=== PATIENT | male | born 1945 | race Caucasian/White ===

== ENCOUNTER 2019-11-27 00:02 | Inpatient (IN) | payer MEDICARE, BC ==
[2019-11-27] VITALS (17 sets, daily range): BP systolic 95–128; BP diastolic 36–66
[~2019-11-27] VITALS: Ht 177.8 cm; Wt 88.1 kg
--- NOTE | 2019-11-27 00:11 | EKG ---
[facility] [facility] [address] [place] [id number] Test Date: 2019-11-27 Test Time: 00:06:08 Pat Name: JEET POND Department: Room: Gender: M Accounting Support Specialist: : [id number] Requested By: INOCENCIO BAIN Order Number: [id number] Reading MD: Measurements Intervals Grant Rate: 162 P: NJ: QRS: 56 QRSD: 80 T: 43 QT: 270 QTc: 450 Interpretive Statements IRREGULAR RHYTHM, NO P-WAVE FOUND OTHERWISE NORMAL ECG RI6.02 No previous ECG available for comparison
--- NOTE | 2019-11-27 00:11 | PHYS DOC ---
Past History Past Medical History: CAD, Hypertension Adult General Chief Complaint Chief Complaint: CHEST PAIN HPI HPI Patient is a 74-year-old male who presents via EMS for shortness of breath. Initial history obtained via EMS crew who reported 3 days of worsening shortness of breath. This evening while sedentary, patient could not catch his breath and had pulse oximetry reading of 88% on room air. did not know what to do prompting her to call EMS. In route, patient was found to be in atrial fibrillation with RVR approximately 150 bpm. He was placed on a nonrebreather at 15 L supplemental oxygen with improvement in pulse oximetry reading. On arrival, patient remained in atrial fibrillation with RVR. Patient was alert and oriented to person place and time. Patient complaining of inability to catch breath and substernal chest pressure that is nonradiating. He is unsure about his prior medical history and thus an unreliable historian. He has not had fever, no productive cough that has been worse than baseline, no change in sputum purulence Patient's eventually came to ER and further history was elicited. She reports patient typically goes to [facility]. He has history of numerous hospitalizations for his shortness of breath for which she is been diagnosed with COPD. He has history of cardiac arrest but this was due to reaction to iodine, this occurred 10 years ago. Patient has not had an extensive cardiovascular work-up, it is unknown if he has ever had a stress test, no catheterization has been performed. Patient covered by primary care physician in outpatient setting and there has been limited work-up performed Review of Systems Review of Systems Fourteen body systems of review of systems have been reviewed. See HPI for pertinent positives and negative responses, other mondragon all other systems are negative, non-pertinent or non-contributory Current Medications Current Medications Current Medications Medications (Trade) Dose Ordered Sig/Sobeida Start Time Stop Time Status Last Admin Dose Admin Aspirin (Frank Aspirin) 325 mg 1X ONCE 11/27/19 00:15 11/27/19 00:16 UNV Diltiazem HCl (Cardizem Iv Push) 23 mg 1X ONCE 11/27/19 00:15 11/27/19 00:16 UNV Nitroglycerin (Nitrostat) 0.4 mg PRN Q5MIN PRN 11/27/19 00:15 11/28/19 00:14 UNV Physical Exam Physical Exam Constitutional: Well developed, well nourished, moderate distress, non-toxic appearance. HENT: Normocephalic, atraumatic, bilateral external ears normal, oropharynx moist, no oral exudates, nose normal. Eyes: PERRLA, EOMI, conjunctiva normal, no discharge. Neck: Normal range of motion, no tenderness, supple, no stridor. Large mass in left clavicular fossa suspicious for VIRCHOW node Cardiovascular: Heart rate tachycardic and irregular, no murmurs rubs or gallops Lungs & Thorax: Bilateral breath sounds clear to auscultation but in obvious moderate respiratory distress with accessory neck muscle usage Abdomen: Bowel sounds normal, soft, no tenderness, no masses, no pulsatile masses. Nonsurgical abdomen, no peritoneal signs Skin: Warm, dry, no erythema, no rash. Back: No tenderness, no CVA tenderness. Extremities: No tenderness, no cyanosis, no clubbing, ROM intact, 1+ pitting edema to bilateral lower extremities noted Neurologic: Alert and oriented X 3, grossly normal motor & sensory function, no focal deficits noted. Psychologic: Affect normal, judgement normal, anxious mood Current Patient Data Vital Signs Vital Signs Date Time Temp Pulse Resp B/P (MAP) Pulse Ox O2 Delivery O2 Flow Rate FiO2 11/27/19 00:46 136 45 87/54 (65) 11/27/19 00:36 99 11/27/19 00:02 97.7 NonRebreather Mask 10.0 Lab Results Laboratory Tests Test 11/27/19 00:05 White Blood Count 13.1 x10^3/uL (4.0-11.0) Red Blood Count 5.20 x10^6/uL (4.30-5.70) Hemoglobin 14.7 g/dL (13.0-17.5) Hematocrit 44.4 % (39.0-53.0) Mean Corpuscular Volume 85 fL (79-100) Mean Corpuscular Hemoglobin 28 pg (25-35) Mean Corpuscular Hemoglobin Concent 33 g/dL (31-37) Red Cell Distribution Width 15.0 % (11.5-14.5) Platelet Count 287 x10^3/uL (140-400) Neutrophils (%) (Auto) 63 % (31-73) Lymphocytes (%) (Auto) 28 % (24-48) Monocytes (%) (Auto) 7 % (0-9) Eosinophils (%) (Auto) 1 % (0-3) Basophils (%) (Auto) 1 % (0-3) Neutrophils # (Auto) 8.3 x10^3uL (1.8-7.7) Lymphocytes # (Auto) 3.6 x10^3/uL (1.0-4.8) Monocytes # (Auto) 1.0 x10^3/uL (0.0-1.1) Eosinophils # (Auto) 0.1 x10^3/uL (0.0-0.7) Basophils # (Auto) 0.1 x10^3/uL (0.0-0.2) Sodium Level 135 mmol/L (136-145) Potassium Level 4.2 mmol/L (3.5-5.1) Chloride Level 96 mmol/L (98-107) Carbon Dioxide Level 20 mmol/L (21-32) Anion Gap 19 (6-14) Blood Urea Nitrogen 38 mg/dL (8-26) Creatinine 1.7 mg/dL (0.7-1.3) Estimated GFR (Cockcroft-Gault) 39.7 BUN/Creatinine Ratio 22 (6-20) Glucose Level 153 mg/dL (70-99) Calcium Level 10.2 mg/dL (8.5-10.1) Magnesium Level 2.1 mg/dL (1.8-2.4) Total Bilirubin 0.7 mg/dL (0.2-1.0) Aspartate Amino Transf (AST/SGOT) 29 U/L (15-37) Alanine Aminotransferase (ALT/SGPT) 35 U/L (16-63) Alkaline Phosphatase 78 U/L (46-116) Creatine Kinase 61 U/L (39-308) Troponin I Quantitative < 0.017 ng/mL (0-0.055) YJ-Xum-X-Type Natriuretic Peptide 224 pg/mL (0-124) Total Protein 7.1 g/dL (6.4-8.2) Albumin 3.5 g/dL (3.4-5.0) Albumin/Globulin Ratio 1.0 (1.0-1.7) EKG EKG EKG ordered and interpreted by myself 001 1 hours as atrial fibrillation with rapid ventricular rate at 162 bpm, QTC unremarkable, no axis deviation, no acute ischemic findings, no STEMI Radiology/Procedures Radiology/Procedures PROCEDURE: PORTABLE CHEST 1V AP chest. HISTORY: Short of breath AP view was taken of the chest. There is a large mediastinal mass. CT would be recommended. Heart is normal in size. Patient's taken a poor inspiration. There are no confluent infiltrates. IMPRESSION: 1. Large mediastinal mass, CT recommended. Electronically signed by: Grant Steve MD (11/27/2019 12:44 AM) [id number] Course & Med Decision Making Course & Med Decision Making Patient seen on immediate ER arrival Airway patent, patient in moderate respiratory distress on arrival, vitals concerning for tachycardia only. 2 large-bore IVs obtained Limited history obtainable initially, comprehensive physical exam obtained, subsequent diagnostic work-up pursued Weight-based IV Cardizem push in addition to 80 mg IV Lasix for clinical fluid overload administered with improvement in patient's rate P.o. aspirin and Lovenox for anticoagulation administered Cardiology service, Dr. Sanchez, contacted and case reviewed. He agreed need for admission with continued IV Cardizem drip as tolerable with consideration for 0.05 digoxin if patient's hypotension is refractory I discussed need for admission with patient and eventually and granddaughter all of which were amenable. I discussed finding of large mediastinal mass with patient but he was unsure of this ever being discussed in the past. is aware, limited outpatient work-up obtained. I discussed need to stabilize patient cardiovascularly before pursuing CT scan of chest, I feel that mediastinal mass with concerning left virchow node could be contributing to patient's atrial fibrillation with RVR but improvement of cardiovascular status should be obtained prior to further investigation Dr. Lozano was contacted and he to agreed for admission for continued medical management of patient's atrial fibrillation with RVR and further work-up of large mediastinal mass All questions and concerns addressed prior to ER departure to [facility] for continued medical management Dragon Disclaimer Dragon Disclaimer This electronic medical record was generated, in whole or in part, using a voice recognition dictation system. Departure Departure: Impression: Primary Impression: Atrial fibrillation with RVR Additional Impressions: Mediastinal mass COPD (chronic obstructive pulmonary disease) Obesity HTN (hypertension) Disposition: 09 ADMITTED INPT THIS HOSP Admitting Physician: Alberto Lozano Condition: STABLE Problem Qualifiers INOCENCIO BAIN DO Nov 27, 2019 00:11
[2019-11-27] MEDS ORDERED: NITROGLYCERIN SUBLINGUAL 0.4 MG BOTTLE OF 25. SL PRN (00:15)
[2019-11-27] MEDS ORDERED: ASPIRIN 325 MG TABLET PO ONE (00:15)
[2019-11-27] MEDS ORDERED: dilTIAZem 25 MG/5 ML VIAL IVP ONE (00:15)
[2019-11-27 00:19] LABS: BASO # 0.1 x10^3/uL (0.0-0.2); BASO % 1 % (0-3); EOS # 0.1 x10^3/uL (0.0-0.7); EOS % 1 % (0-3); HEMATOCRIT 44.4 % (39.0-53.0); HEMOGLOBIN 14.7 g/dL (13.0-17.5); LYMPH # 3.6 x10^3/uL (1.0-4.8); LYMPH % 28 % (24-48); MEAN CORPUSCULAR HEMOGLOBIN 28 pg (25-35); MEAN CORPUSCULAR HGB CONC 33 g/dL (31-37); MEAN CORPUSCULAR VOLUME 85 fL (79-100); MONO % 7 % (0-9); NEUT # 8.3 x10^3uL (1.8-7.7); NEUT % 63 % (31-73); PLATELET COUNT 287 x10^3/uL (140-400); WHITE BLOOD COUNT 13.1 x10^3/uL (4.0-11.0)
[2019-11-27 00:30] LABS: CALCIUM 10.2 mg/dL (8.5-10.1); CREATININE 1.7 mg/dL (0.7-1.3); GFR 39.7; POTASSIUM 4.2 mmol/L (3.5-5.1)
[2019-11-27] MEDS ORDERED: IV NORMAL SALINE 1,000ML 1,000 ML IV ONE (00:30)
[2019-11-27 00:42] LABS: ALBUMIN 3.5 g/dL (3.4-5.0); MAGNESIUM 2.1 mg/dL (1.8-2.4); TOTAL BILIRUBIN 0.7 mg/dL (0.2-1.0); TOTAL PROTEIN 7.1 g/dL (6.4-8.2)
[2019-11-27] MEDS ORDERED: dilTIAZem VIAL 125 MG in IV NORMAL SALINE 100ML 100 ML IV PRN (00:45)
--- NOTE | 2019-11-27 00:46 | RAD ---
AP chest. HISTORY: Short of breath AP view was taken of the chest. There is a large mediastinal mass. CT would be recommended. Heart is normal in size. Patient's taken a poor inspiration. There are no confluent infiltrates. IMPRESSION: 1. Large mediastinal mass, CT recommended. Electronically signed by: Grant Steve MD (11/27/2019 12:44 AM) [id number]
[2019-11-27] MEDS ORDERED: IV NORMAL SALINE 100ML 100 ML ONE (00:48)
[2019-11-27] MEDS ORDERED: FUROSEMIDE 40 MG/4 ML VIAL IVP ONE (01:00)
[2019-11-27] MEDS ORDERED: ENOXAPARIN ** NOTE DOSE ** SYRINGE SQ ONE (01:15)
--- NOTE | 2019-11-27 03:40 | NUR ---
Pt admitted via EMS from ER to ICU bed 2, DX: Afib with RVR. A full assessment completed, but history difficult to obtain, as pt is a very poor historian. Pt Alert to person, place and situation but disoriented to time and is forgetful. tele shows Afib, rate ranging from 120'-140's at this time, Cardizem gtt at 5mg/hr. Oriented pt to unit, nurse, call light and plan of care. V/U stated. Will monitor.
[2019-11-27] MEDS ORDERED: PIOG1TAB PO (07:43)
[2019-11-27] MEDS ORDERED: ASPI81TA59 PO (07:43)
[2019-11-27] MEDS ORDERED: AMLO-187 PO (07:43)
[2019-11-27] MEDS ORDERED: ROSU5TAB12 PO (07:43)
--- NOTE | 2019-11-27 08:35 | PDOC2 ---
CARDIAC CONSULT DATE OF CONSULT DOS: DATE: 11/27/19 TIME: 08:31 REASON FOR CONSULT Reason for Consult AFIB with RVR REFERRING PHYSICIAN Referring Physician Dr. Lennon SOURCE Source: Chart review, Patient HPI History of Present Illness This is a 74 yo male who presented secondary to shortness of breath. Was noted in AFIB in RVR, which prompted this consult. Patient remains in AFIB, but rate is controlled on Cardizem gtt. PAST MEDICAL HISTORY Cardiovascular: HTN Pulmonary: COPD Endocrine: Diabetes PAST SURGICAL HISTORY Past Surgical History: Cholecystectomy FAMILY HISTORY Family History: Hypertension SOCIAL HISTORY Smoke: 2 packs per day ALCOHOL: none Drugs: None Lives: with Family CURRENT MEDICATIONS Current Medications Current Medications Aspirin (Frank Aspirin) 325 mg 1X ONCE PO Last administered on 11/27/19at 00:41; Start 11/27/19 at 00:15; Stop 11/27/19 at 00:43; Status DC Nitroglycerin (Nitrostat) 0.4 mg PRN Q5MIN PRN SL CP RATING > 1/10; Start 11/27/19 at 00:15; Stop 11/28/19 at 00:14 Diltiazem HCl (Cardizem Iv Push) 23 mg 1X ONCE IVP Last administered on 11/27/19at 00:16; Start 11/27/19 at 00:15; Stop 11/27/19 at 00:42; Status DC Diltiazem HCl 125 mg/Sodium Chloride 125 ml @ 5 mls/hr CONT PRN IV SEE I/O RECORD Last administered on 11/27/19at 01:00; Start 11/27/19 at 00:45 Sodium Chloride 1,000 ml @ 1,000 mls/hr 1X ONCE IV ; Start 11/27/19 at 00:30; Stop 11/27/19 at 00:55; Status DC Sodium Chloride 100 ml @ As Directed STK-MED ONCE .ROUTE ; Start 11/27/19 at 00:48; Stop 11/27/19 at 00:48; Status DC Diltiazem HCl (Cardizem) 125 mg STK-MED ONCE IV ; Start 11/27/19 at 00:48; Stop 11/27/19 at 00:48; Status DC Furosemide (Lasix) 80 mg 1X ONCE IVP Last administered on 11/27/19at 01:25; Start 11/27/19 at 01:00; Stop 11/27/19 at 01:29; Status DC Enoxaparin Sodium (Lovenox 100mg Syringe) 100 mg 1X ONCE SQ Last administered on 11/27/19at 01:26; Start 11/27/19 at 01:15; Stop 11/27/19 at 01:29; Status DC Active Scripts Active Reported Rosuvastatin Calcium 5 Mg Tablet 5 Mg PO HS Children's Aspirin (Aspirin) 81 Mg Tab.chew 1 Tab PO DAILY 30 Days Actoplus Met 15 Mg-500 Mg Tab (Pioglitazone Hcl/Metformin Hcl) 1 Each Tablet 1 Tab PO BID 30 Days Amlodipine Besylate 10 Mg Tablet 1 Tab PO DAILY ALLERGIES Allergies: Uncoded Allergies: IODINE (Adverse Reaction, Severe, 11/27/19) ROS Review of Systems 14 point ROS conducted with pertinent positives noted above in HPI PHYSICAL EXAM General: Alert, Cooperative, No acute distress HEENT: Atraumatic, Mucous membr. moist/pink Lungs: Other (coarse ) Heart: Other (IRRR; tele AFIB ) Abdomen: No tenderness Extremities: No edema, Normal pulses Neuro: Sensation intact, Other (forgetful) MUSCULOSKELETAL: Osteoarthritic changes both hands VITALS Vital Signs Vital Signs Date Time Temp Pulse Resp B/P (MAP) Pulse Ox O2 Delivery O2 Flow Rate FiO2 11/27/19 08:06 119 24 105/54 (71) 100 Room Air 11/27/19 03:30 97.5 11/27/19 00:02 10.0 LABS LABS Laboratory Tests Test 11/27/19 00:05 11/27/19 04:14 11/27/19 07:48 White Blood Count 13.1 x10^3/uL (4.0-11.0) Red Blood Count 5.20 x10^6/uL (4.30-5.70) Hemoglobin 14.7 g/dL (13.0-17.5) Hematocrit 44.4 % (39.0-53.0) Mean Corpuscular Volume 85 fL (79-100) Mean Corpuscular Hemoglobin 28 pg (25-35) Mean Corpuscular Hemoglobin Concent 33 g/dL (31-37) Red Cell Distribution Width 15.0 % (11.5-14.5) Platelet Count 287 x10^3/uL (140-400) Neutrophils (%) (Auto) 63 % (31-73) Lymphocytes (%) (Auto) 28 % (24-48) Monocytes (%) (Auto) 7 % (0-9) Eosinophils (%) (Auto) 1 % (0-3) Basophils (%) (Auto) 1 % (0-3) Neutrophils # (Auto) 8.3 x10^3uL (1.8-7.7) Lymphocytes # (Auto) 3.6 x10^3/uL (1.0-4.8) Monocytes # (Auto) 1.0 x10^3/uL (0.0-1.1) Eosinophils # (Auto) 0.1 x10^3/uL (0.0-0.7) Basophils # (Auto) 0.1 x10^3/uL (0.0-0.2) Sodium Level 135 mmol/L (136-145) Potassium Level 4.2 mmol/L (3.5-5.1) Chloride Level 96 mmol/L (98-107) Carbon Dioxide Level 20 mmol/L (21-32) Anion Gap 19 (6-14) Blood Urea Nitrogen 38 mg/dL (8-26) Creatinine 1.7 mg/dL (0.7-1.3) Estimated GFR (Cockcroft-Gault) 39.7 BUN/Creatinine Ratio 22 (6-20) Glucose Level 153 mg/dL (70-99) Calcium Level 10.2 mg/dL (8.5-10.1) Magnesium Level 2.1 mg/dL (1.8-2.4) Total Bilirubin 0.7 mg/dL (0.2-1.0) Aspartate Amino Transf (AST/SGOT) 29 U/L (15-37) Alanine Aminotransferase (ALT/SGPT) 35 U/L (16-63) Alkaline Phosphatase 78 U/L (46-116) Creatine Kinase 61 U/L (39-308) Troponin I Quantitative < 0.017 ng/mL (0-0.055) < 0.017 ng/mL (0-0.055) < 0.017 ng/mL (0-0.055) WP-Wum-E-Type Natriuretic Peptide 224 pg/mL (0-124) Total Protein 7.1 g/dL (6.4-8.2) Albumin 3.5 g/dL (3.4-5.0) Albumin/Globulin Ratio 1.0 (1.0-1.7) ASSESSMENT/PLAN Assessment/Plan 1. Acute respiratory failure with AE COPD, RVR 2. AFIB with RVR; probable new finding. Rate controlled on Cardizem gtt 3. Large mediastinal mass 4. CKD 5. Hypertension; controlled 6. Hyperlipidemia; statin 7. Diabetes, II 8. Tobaccoism; discussed/encouraged cessation Recommendations Start metoprolol for rate control; titrate off Cardizem gtt TSH, Lipids ASA thearpy. Will hold off on OAC until further workup of lung mass complete Obtain previous records from [facility] Baseline echo if none recently Supportive care DOMINICK ZURITA APRN Nov 27, 2019 08:35
[2019-11-27] MEDS: METOPROLOL TART IMMED RELEASE 50 MG TABLET PO SCH ×2 (09:16→20:59)
--- NOTE | 2019-11-27 10:29 | NUR ---
SPOKE WITH CAN POND AND GIVEN PASSCODE. TOLD THIS RN THAT PATIENT HAD A NEW ONSET OF CONFUSION THAT PROGRESSED SINCE AUGUST THIS YEAR. SHE STATES HE WOULD FORGET THAT PT HAD A DOG AT HOME THAT THEY HAVE HAD FOR 12 YEARS. ALSO MENTIONED THAT PT HAS TO ORGANIZE AND GIVE PT DAILY MEDICATIONS BECAUSE HE FORGETS TO TAKE THEM. WILL LET DR ROBERT AWARE. [facility]
[2019-11-27] MEDS ORDERED: ONDANSETRON PF 4 MG/2 ML VIAL. ONE (10:49)
[2019-11-27] MEDS: ONDANSETRON PF 4 MG/2 ML VIAL. IVP PRN (10:55)
[2019-11-27] MEDS ORDERED: ASPIRIN CHEWABLE 81 MG TABLET. PO SCH (11:00)
--- NOTE | 2019-11-27 11:09 | RAD ---
CT HEAD WO CONTRAST History:Confusion Comparison: None. Technique: Noncontrast CT imaging was performed of the head. Exposure: One or more of the following individualized dose reduction techniques were utilized for this examination: 1. Automated exposure control 2. Adjustment of the mA and/or kV according to patient size 3. Use of iterative reconstruction technique. Findings: There is motion degradation. There is no midline shift or convincing intra-axial mass effect. No obvious intracranial hemorrhage is identified allowing for motion. Ventricular size is within normal limits. Oconnor-white differentiation of the major vascular territories is grossly preserved. Visualized paranasal sinuses and mastoid air cells are aerated. Impression: 1. Exam is degraded by motion, no obvious acute intracranial abnormality identified allowing for motion. Electronically signed by: Avila Butler MD (11/27/2019 11:05 AM) [facility]
[2019-11-27] MEDS: NICOTINE 21MG PATCH. TD SCH (11:10)
--- NOTE | 2019-11-27 11:21 | HP ---
ADMIT DATE: 11/27/2019 ATTENDING PHYSICIAN: Dr. Robert. CHIEF COMPLAINT: Fast heart rate. HISTORY OF PRESENT ILLNESS: The patient is a 74-year-old gentleman admitted through the Emergency Department with increasing shortness of breath. He has had it for 3 days. He is a smoker, 2 packs of cigarettes daily. He was found to be in atrial fibrillation, rapid ventricular rate. Ventricular rate is 150 per minute. He was placed on supplemental oxygen. He was given a breathing treatment. He was given Cardizem with some improvement. He typically goes to [facility]. He has had recent hospitalization in August, but he did not want to stay. As part of the workup, he had a chest x-ray done, which showed a large mediastinal mass. He also has a palpable lymph node in the left neck. This is probably lymphoma until proven otherwise. A CT of the head, chest and abdomen has been ordered. PAST MEDICAL HISTORY: Significant for paroxysmal atrial fibrillation, essential hypertension, coronary artery disease and COPD. ALLERGIES: He has allergies to IODINE, which causes a drug reaction. MEDICATIONS: Prior to admission included amlodipine, aspirin, metformin, pioglitazone and rosuvastatin. He did receive diltiazem IV along with metoprolol and nitroglycerin. SOCIAL HISTORY: He is a smoker, 2 packs of cigarettes daily. He denies any significant alcohol use. He is retired, and lives with his . Children are grown. FAMILY HISTORY: Unobtainable. He does not remember. REVIEW OF SYSTEMS: Significant for chronic pulmonary issue, dyspnea with minimal exertion. No fevers or recent COVID exposure. His tells me he has been getting quite forgetful. He has not had followup with his doctors. He continues to smoke heavily. All other systems reviewed and determined to be negative. PHYSICAL EXAMINATION: GENERAL: When I saw him, this is a pleasant gentleman. INITIAL VITAL SIGNS: Showed a blood pressure of 98/50, pulse is 118 and regular. By the time I saw him, he had converted to sinus rhythm at 73 per minute. Oxygen saturation 99% on room air. He is afebrile. HEENT: Head is without trauma. Pupils are reactive. Sclerae nonicteric. Oropharynx clear. NECK: Supple, no bruits. LUNGS: Diffuse wheezing in upper airways. CARDIOVASCULAR: Showed regular heart tones. No gallops. Peripheral pulses are palpable and full. ABDOMEN: Soft, scaphoid, nontender. I did not palpate any liver or spleen enlargement. Bowel sounds were hypoactive. EXTREMITIES: Showed no cyanosis or edema. I did palpate a noticeable lymph node on the left side of his neck. SKIN: Otherwise warm and dry. NEUROLOGIC: Focally intact. No focal deficits. Perch Machine Inspector were intact. Speech is fluent. PERTINENT LABORATORY AND X-RAY STUDIES: The initial hemoglobin was 14.7 g/dL, white count 13,100. Electrolytes were within normal range. Creatinine is 1.7 mg percent. Nonfasting blood sugar 153. Transaminases are normal. Three sets of cardiac enzymes negative for myocardial necrosis. Chest x-ray demonstrated large mediastinal mass, no acute infiltrates identified. ASSESSMENT: 1. A 74-year-old gentleman with atrial fibrillation with rapid ventricular rate. 2. Essential hypertension. 3. Noncompliance of medications. 4. Continued tobacco addiction. 5. Large mediastinal mass with a palpable lymph node superficially. This is probably lymphoma until proven otherwise. PLAN: 1. Admit to the inpatient unit. 2. Cardizem drip has been started. 3. Cardiology evaluation at this admission. 4. CT head, chest and abdomen; hopefully, we can delineate structures without iodine contrast. 5. Beta blockers as recommended by Cardiology. 6. After the scans, he will need further evaluation and probable biopsy of the neck lymph node. I talked with his and I recommend transfer either to the [facility] or to [facility]. EVA ROBERT MD DR: NIKOS/jam JOB#: [id number] / [id number] DARCIE Charles MD
--- NOTE | 2019-11-27 11:31 | RAD ---
CT CHEST ABDOMEN WO CONTRAST Indication: Mediastinal mass, confusion Technique: Noncontrast CT imaging was performed of the chest and abdomen, multiplanar reconstruction images submitted. One or more of the following individualized dose reduction techniques were utilized for this examination: 1. Automated exposure control 2. Adjustment of the mA and/or kV according to patient size 3. Use of iterative reconstruction technique. Comparison: None CHEST: Findings: There is left upper lobe noncalcified mass about 5.3 cm CC by up to 3.1 cm transverse by about 1.56 m AP with somewhat tubular morphology extending to the left hilum. There is very large anterior mediastinal mass more eccentric to the left grossly estimated at 2 8.1 cm AP by 8.46 m transverse by about 10.1 cm CC. There is middle mediastinal lymphadenopathy, more confluent mass such anterior to the tylor on the order of at least 5 cm short axis dimension. Anterior right mediastinal mass measures about 1.5 cm short axis dimension. There is a 1.7 cm short axis nitin mass along the anterior right pericardial surface of anterior right pericardiophrenic angle. Left anterior pericardiophrenic node measures about 0.8 cm axis dimension. There is a noncalcified pleural-based mass posteriorly of the inferior right hemithorax of the right lower lobe 2.3 cm transverse by 1 cm AP. There is mild left lower lobe infiltrate/atelectasis near the base. There is no pleural or pericardial fluid or pneumothorax. There is coronary calcification. There is atherosclerotic calcification of the abdominal aorta. Aortic root is dilated about 4.1 cm. Tubular ascending thoracic aorta measures about 3.7 cm. IMPRESSION: 1. There is very large anterior mediastinal mass eccentric to the left, also middle mediastinal lymphadenopathy as well as some pericardiophrenic nodes. There is also noncalcified somewhat somewhat cylindrical left upper lobe noncalcified mass. There is also pleural-based mass posteriorly of the inferior right hemithorax. Findings could be due to lung malignancy and metastatic disease or lymphoma. Sequela of invasive thymoma/thymic carcinoma would be included in the differential considerations given the larger anterior mediastinal component and pleural-based lesions. 2. There is ectatic aortic root and tubular ascending thoracic aorta. 3. There is emphysema. 4. There is coronary calcification. Abdomen FINDINGS: Exam is degraded by motion. There is a 5.2 cm exophytic lesion of the inferior, medial left kidney, internal density measurements 18 Hounsfield units. There is 2 cm hypodense lesion of the left kidney with density measurements 16 Hounsfield units. There is atherosclerotic calcification of the abdominal aorta and branches. There has been cholecystectomy. Accurate evaluation of the abdominal visceral organs is limited without intravenous contrast. No obvious focal abnormality is identified of the liver or pancreas. There is some linear calcification along the lateral aspect of the spleen. There is what likely represents a large accessory spleen about 2.6 cm. Visualized bowel is not significantly dilated. IMPRESSION: 1.There are some hypodense left renal lesions, more likely due to cysts. Electronically signed by: Avila Butler MD (11/27/2019 11:28 AM) [facility]
[2019-11-27] MEDS: metFORMIN 500 MG TABLET PO SCH (17:12)
[2019-11-27] MEDS: PIOGLITAZONE 15 MG TABLET. PO SCH (17:12)
[2019-11-27] MEDS: ATORVASTATIN CALCIUM 20 MG TABLET PO SCH (20:58)
[2019-11-27 22:49] LABS: BACTERIA,URINE 0 /HPF (0-FEW); BILIRUBIN,URINE NEG (NEG); CLARITY,URINE CLEAR; COLOR,URINE YELLOW; GLUCOSE,URINE NEG (NEG); NITRITE,URINE NEG (NEG); RBC,URINE 0 /HPF (0-2); SQUAMOUS EPITHELIAL CELL,UR OCC /LPF
[2019-11-28] VITALS (13 sets, daily range): BP systolic 98–133; BP diastolic 49–96
--- NOTE | 2019-11-28 03:15 | NUR ---
Pt resting in bed at change of shift with eyes closed, easily awoke to staffs voice when entered room. Pt is A&O x3 but can be disoriented/forgetful. Pt converted earlier today out of A.fib and is still currently in NSR per monitor. Pt refused HS snack. Pt did speak to on phone before bed. Pt often sits on side of bed and coughs up scant-small amount of clear with blood tinge sputum throughout shift, stating "I have been doing this for a while now...nothing new." Pt with flat affect, not wanting to talk much with staff but polite about it. Pt give updated POC and stated "yeah..I know." Pt slept off and on during the night, up to use urinal a few times.
[2019-11-28 06:26] LABS: BASO # 0.1 x10^3/uL (0.0-0.2); BASO % 1 % (0-3); EOS % 1 % (0-3); HEMATOCRIT 41.5 % (39.0-53.0); HEMOGLOBIN 13.9 g/dL (13.0-17.5); LYMPH # 1.4 x10^3/uL (1.0-4.8); LYMPH % 16 % (24-48); MEAN CORPUSCULAR HEMOGLOBIN 28 pg (25-35); MEAN CORPUSCULAR HGB CONC 34 g/dL (31-37); MEAN CORPUSCULAR VOLUME 85 fL (79-100); MONO % 11 % (0-9); NEUT # 6.6 x10^3uL (1.8-7.7); NEUT % 73 % (31-73); PLATELET COUNT 211 x10^3/uL (140-400); RED CELL DISTRIBUTION WIDTH 15.1 % (11.5-14.5); WHITE BLOOD COUNT 9.2 x10^3/uL (4.0-11.0)
[2019-11-28 06:28] LABS: CALCIUM 9.2 mg/dL (8.5-10.1); CREATININE 1.3 mg/dL (0.7-1.3); GFR 54.1; POTASSIUM 3.9 mmol/L (3.5-5.1)
[2019-11-28] MEDS: metFORMIN 500 MG TABLET PO SCH ×3 (08:00→17:00)
[2019-11-28] MEDS: NICOTINE 21MG PATCH. TD SCH (08:03)
[2019-11-28] MEDS: PIOGLITAZONE 15 MG TABLET. PO SCH ×2 (08:03→17:00)
[2019-11-28] MEDS: ASPIRIN CHEWABLE 81 MG TABLET. PO SCH (08:03)
[2019-11-28] MEDS: METOPROLOL TART IMMED RELEASE 50 MG TABLET PO SCH ×2 (08:04→20:44)
--- NOTE | 2019-11-28 08:50 | PDOC ---
PROVIDER NOTE PROVIDER NOTE PROVIDER NOTE S: No new events overnight. Denies any chest pain but does still have SOA O: VSS He has a flat affect. Normal heart tones. Lungs with bilateral rhonchi No edema. 2+ pulses. Labs/CT imaging reviewed Tele with sinus tachycardia Impression: 1. PAF in the setting of large mediastinal mass. 2. COPD/Tobacco abuse Plan: 1. Continue asa, metoprolol. Await w/u for mediastinal mass, plan for outpt event monitor. 2. Echo when transferred to [facility]. Supportive care. Thanks. Justification of Admission: Justification of Admission: Justification of Admission Dx: Yes Comments: lung mass AIMEE VILLASENOR MD Nov 28, 2019 08:50
--- NOTE | 2019-11-28 09:00 | NUR ---
Dr Lozano and Dr Jose ram for pt to downgraded to med/surg tele Addendum: 11/28/19 at 1033 by SERAFIN NEVAREZ RN 0900 notified nursing toy assembly supervisor for transfer to [facility]. 1035 pt asked if he could go home, nurse educated on need for transfer to [facility]-no reply from pt, just eye roll. Addendum: 11/28/19 at 1705 by SERAFIN NEVAREZ RN 1500 pt up ambulating, refuses to keep tele monitor on, requesting coffee, pt spoke with and son on phone. 1615 bicycle technician at bedside, pt complying, calm cooperative. . Addendum: 11/28/19 at 1745 by SERAFIN NEVAREZ RN 1715 pt had episode of nausea and dizziness, wanted to kneel at bedside, refused to get into bed. this nurse stayed with pt until pt decided to get into bed. pt has refused breakfast-lunch and dinner. vital signs stable.
--- NOTE | 2019-11-28 16:44 | CARD ---
MR#: [id number] Date of Study: 11/28/2019 Ordering Physician: DOMINICK ZURITA, Referring Physician: DOMINICK ZURITA, Tech: Sushila Lockhart APPROVED REPORT EXAM: Two-dimensional and M-mode echocardiogram with Doppler and color Doppler. Other Information Quality : AverageHR: 91bpm Technically limited study due to COPD INDICATION COPD Atrial Fibrillation RISK FACTORS Hypertension Hyperlipidemia Diabetes Smoking 2D DIMENSIONS RVDd3.8 (2.9-3.5cm)Left Atrium(2D)3.2 (1.6-4.0cm) IVSd1.2 (0.7-1.1cm)Aortic Root(2D)3.3 (2.0-3.7cm) LVDd3.5 (3.9-5.9cm)LVOT Diameter2.1 (1.8-2.4cm) PWd0.8 (0.7-1.1cm)LVDs1.9 (2.5-4.0cm) FS (%) 46.6 %SV41.1 ml LVEF(%)78.9 (>50%) Aortic Valve AoV Peak Pietro.90.4cm/sAoV VTI17.5cm AO Peak GR.3.3mmHgLVOT Peak Pietro.80.3cm/s LVOT VTI 14.38cmAO Mean GR.2mmHg GEORGINA (VMAX)3.43zz7PWP (VTI)2.94cm2 Mitral Valve MV E Zlxjgvkr57.0cm/sMV DECEL [id number] MV A Agoqxyxn64.4cm/sE/A Ratio0.9 Pulmonary Valve PV Peak Wvwdspiu11.3cm/sPV Peak Grad.2mmHg Tricuspid Valve TR P. Oyxfmkdo349wx/sRAP FXHVNMRW2lhLt TR Peak Gr.89mgVyKBSP05qxOp LEFT VENTRICLE The left ventricle is normal size. There is borderline to mild concentric left ventricular hypertroph y. The left ventricular systolic function is normal and the ejection fraction is within normal range. The Ejection Fraction is 60%. There is normal LV segmental wall motion. Transmitral Doppler flow pat tern is Grade I-abnormal relaxation pattern. RIGHT VENTRICLE The right ventricle is normal size. There is normal right ventricular wall thickness. The right ventr icular systolic function is normal. ATRIA The left atrium size is normal. The right atrium size is normal. The interatrial septum is intact wit h no evidence for an atrial septal defect or patent foramen ovale as noted on 2-D or Doppler imaging. AORTIC VALVE The aortic valve is normal in structure and function. Doppler and Color Flow revealed no significant aortic regurgitation. There is no significant aortic valvular stenosis. Calculated aortic valve area is 2.9 cm2 with maximum pressure gradient of 5 mmHg and mean pressure gradient of 2 mmHg. MITRAL VALVE The mitral valve is normal in structure and function. There is no evidence of mitral valve prolapse. There is no mitral valve stenosis. Doppler and Color Flow revealed no mitral valve regurgitation note d. TRICUSPID VALVE The tricuspid valve is normal in structure and function. Doppler and Color Flow revealed trace tricus pid regurgitation with an estimated PAP of 43 mmHg. There is no tricuspid valve stenosis. PULMONIC VALVE The pulmonic valve is not well visualized. Doppler and Color Flow revealed trace pulmonic valvular re gurgitation. There is no pulmonic valvular stenosis. GREAT VESSELS The aortic root is borderline enlarged. The ascending aorta is borderline dilated. The IVC is normal in size and collapses >50% with inspiration. PERICARDIAL EFFUSION There is no evidence of significant pericardial effusion. Critical Notification Critical Value: No <Conclusion> The left ventricular systolic function is normal and the ejection fraction is within normal range. Th e Ejection Fraction is 60%. There is normal LV segmental wall motion. Signed by : Quoc Rivera, Electronically Approved : 11/28/2019 16:44:09
[2019-11-28] MEDS: ONDANSETRON PF 4 MG/2 ML VIAL. IVP PRN (18:12)
[2019-11-28] MEDS: ATORVASTATIN CALCIUM 20 MG TABLET PO SCH (20:44)
--- NOTE | 2019-11-28 23:26 | PN ---
DATE: 11/28/2019 ATTENDING PHYSICIAN: Dr. Robert. SUBJECTIVE: He is less short of breath. Heart rate is controlled. OBJECTIVE FINDINGS: VITAL SIGNS: He has converted to sinus rhythm, heart rate is 80 and regular, blood pressure 114/62. He is afebrile. Oxygen saturation is 93% on room air. HEENT: Head is without trauma. Pupils are reactive. Sclerae nonicteric. Oropharynx is clear. NECK: Supple, no bruits identified. LUNGS: Clear. CARDIOVASCULAR: Showed regular heart tones. No gallops. He has a hard palpable mass in the left neck, approximately 3 x 3 cm. It is hard to palpation. ABDOMEN: Soft. No liver or spleen enlargement. Bowel sounds are hypoactive. EXTREMITIES: Show trace edema. NEUROLOGIC: Focally intact. ASSESSMENT: 1. A 74-year-old gentleman with atrial fibrillation with rapid ventricular rate, ventricular rate controlled and he has converted spontaneously. 2. Large mediastinal mass with a palpable lymph node superficially. This is most likely a lymphoma until proven otherwise. 3. Chronic obstructive pulmonary disease and continued tobacco addiction. 4. Labile hypertension. 5. Essential hypertension. 6. Type 2 diabetes. PLAN: 1. Rx per Cardiology. Beta carole has been continued. 2. Arrangements were made for transfer to [facility] for superficial lymph node biopsy and Oncology consultation; however, there are no beds available as of noon today. I have spoken with Dr. Camops. 3. Discussion with the family that he is agreeable to go to [facility] [place]. 4. Rx per Cardiology. They recommended an echocardiogram while at [facility] [place]. EVA ROBERT MD DR: NIKOS/jam JOB#: [id number] / [id number] eloy Campos Dr.
--- NOTE | 2019-11-29 04:00 | NUR ---
Pt was sitting down at nursing station at change of shift with his head on the desk. Pt expressed frustration about still being in the hospital, education given about importance of transferring to [facility] for mass biopsy and oncology consult. Pt stated "Can I just go home?" while walking back to his room and getting into bed. Pt withdrawn to his room after this conversation, only coming back to his door once to ask that we turn his light off. Pt with flat affect, not talking much but would answer questions with small sentences when asked a question. Pt can be disoriented and forgetful at times. Pt refusing to wear Tele monitor. Pt refused HS snack. Pt occasionally will sit on side of bed to cough up scant-small amount of clear with blood tinge sputum into a "bucket." Pt slept better tonight then last night, up to use bathroom or urinal a few times. Still awaiting bed placement at [facility].
[2019-11-29 05:20] VITALS: BP 98/56
[2019-11-29] MEDS: metFORMIN 500 MG TABLET PO SCH ×2 (08:00→17:00)
[2019-11-29] MEDS: NICOTINE 21MG PATCH. TD SCH (08:31)
[2019-11-29] MEDS: ASPIRIN CHEWABLE 81 MG TABLET. PO SCH (08:31)
[2019-11-29] MEDS: METOPROLOL TART IMMED RELEASE 50 MG TABLET PO SCH ×2 (08:37→20:05)
--- NOTE | 2019-11-29 08:59 | PDOC ---
CARDIO Progress Notes Date & Time Date of Service DATE: 11/29/19 TIME: 08:52 Time of Evaluation 08:52 Subjective Notes cough persists. Denies any shortness of breath. No dizziness, palpitations Vitals Vitals Vital Signs Date Time Temp Pulse Resp B/P (MAP) Pulse Ox O2 Delivery O2 Flow Rate FiO2 11/29/19 08:37 91 98/56 11/29/19 05:20 97.5 20 95 Room Air 11/27/19 00:02 10.0 Weight Weight [ ] Input and Output I.O. Intake and Output 11/29/19 07:00 Intake Total 550 ml Output Total 475 ml Balance 75 ml Intake Oral 550 ml Output Urine Total 475 ml # Voids 3 # Bowel Movements 1 Laboratory Labs Laboratory Tests Test 11/27/19 22:05 11/28/19 05:40 11/28/19 17:31 11/28/19 19:11 Urine Collection Type Void Urine Color Yellow Urine Clarity Clear Urine pH 5.5 Urine Specific Holcomb 1.020 Urine Protein 30 mg/dl (NEG-TRACE) Urine Glucose (UA) Neg mg/dL (NEG) Urine Ketones (Stick) 80 mg/dL (NEG) Urine Blood Neg (NEG) Urine Nitrite Neg (NEG) Urine Bilirubin Neg (NEG) Urine Urobilinogen Dipstick 1.0 mg/dL (0.2 mg/dL) Urine Leukocyte Esterase Neg (NEG) Urine RBC 0 /HPF (0-2) Urine WBC 1-4 /HPF (0-4) Urine Squamous Epithelial Cells Occ /LPF Urine Bacteria 0 /HPF (0-FEW) White Blood Count 9.2 x10^3/uL (4.0-11.0) Red Blood Count 4.90 x10^6/uL (4.30-5.70) Hemoglobin 13.9 g/dL (13.0-17.5) Hematocrit 41.5 % (39.0-53.0) Mean Corpuscular Volume 85 fL (79-100) Mean Corpuscular Hemoglobin 28 pg (25-35) Mean Corpuscular Hemoglobin Concent 34 g/dL (31-37) Red Cell Distribution Width 15.1 % (11.5-14.5) Platelet Count 211 x10^3/uL (140-400) Neutrophils (%) (Auto) 73 % (31-73) Lymphocytes (%) (Auto) 16 % (24-48) Monocytes (%) (Auto) 11 % (0-9) Eosinophils (%) (Auto) 1 % (0-3) Basophils (%) (Auto) 1 % (0-3) Neutrophils # (Auto) 6.6 x10^3uL (1.8-7.7) Lymphocytes # (Auto) 1.4 x10^3/uL (1.0-4.8) Monocytes # (Auto) 1.0 x10^3/uL (0.0-1.1) Eosinophils # (Auto) 0.0 x10^3/uL (0.0-0.7) Basophils # (Auto) 0.1 x10^3/uL (0.0-0.2) Sodium Level 136 mmol/L (136-145) Potassium Level 3.9 mmol/L (3.5-5.1) Chloride Level 99 mmol/L (98-107) Carbon Dioxide Level 26 mmol/L (21-32) Anion Gap 11 (6-14) Blood Urea Nitrogen 40 mg/dL (8-26) Creatinine 1.3 mg/dL (0.7-1.3) Estimated GFR (Cockcroft-Gault) 54.1 Glucose Level 111 mg/dL (70-99) Calcium Level 9.2 mg/dL (8.5-10.1) Triglycerides Level 114 mg/dL (0-150) Cholesterol Level 92 mg/dL (0-200) LDL Cholesterol, Calculated 33 mg/dL (0-100) VLDL Cholesterol, Calculated 22 mg/dL (0-40) Non-HDL Cholesterol Calculated 55 mg/dL (0-129) HDL Cholesterol 37 mg/dL (40-60) Cholesterol/HDL Ratio 2.0 Glucose (Fingerstick) 124 mg/dL (70-99) 110 mg/dL (70-99) Physical Exams HEENT: Neck Supple W Full Motion Chest: Symmetric Lungs: Other (coarse throughout) Heart: RRR (heart tones regular. refusing tele) Abdomen: Soft N/T Extremities: No Edema Neurology: alert, oriented (to self only. ), follow commands, confused, other (forgetful) Assessment Assessment 1. Acute respiratory failure with AE COPD, large mediastinal mass, and RVR 2. AFIB with RVR; new finding. converted back SR. rate controlled on metoprolol. refusing tele. Echo with preserved LV systolic function 3. CKD 4. Hypertension; controlled 5. Hyperlipidemia; statin 6. Diabetes, II 7. Tobaccoism; reinforced cessation 8. Encephalopathy vs dementia; remains confused, forgetful Recommendations Continue metoprolol for rate control ASA thearpy. Will hold off on OAC until further workup of lung mass complete Consider outpatient event monitor Awaiting transfer to [facility] for lung mass biopsy, hemonc evaluation Supportive care DOMINICK ZURITA APRN Nov 29, 2019 08:59
[2019-11-29] MEDS: PIOGLITAZONE 15 MG TABLET. PO SCH ×2 (09:12→17:00)
--- NOTE | 2019-11-29 09:30 | NUR ---
WHEN PT ASKED WHERE HE IS AND WHY HES HERE PT STATES "IM AT THE HOSPITAL, WHY AM I HERE". PT ABLE TO SAY WHO HE IS BUT WHEN ASKED THE YEAR STATES IT IS 1971. PT TOLD WE ARE WAITING ON BED AT [facility] FOR HIM TO GET A BIOPSY OF A MASS ON HIS NECK AND SEE THE ONCOLOGIST. PT INFORMED OF POC MULTIPLE TIMES THOUGHOUT STAY. FAMILY AWARE AND WANTING PT TO GO TO GET CARE AT [facility] BECAUSE THEY STATE IF HE COMES HOME HE WILL NOT FOLLOW UP WITH HIS PCP AND GET THE TX. PT SITTING ON BEDSIDE AT THIS TIME LEANING HEAD ON TO BEDSIDE TABLE. SERGE Rocha RN
[2019-11-29 10:47] VITALS: BP 113/68
--- NOTE | 2019-11-29 16:46 | DS ---
DATE OF DISCHARGE: 11/29/2019 DISCHARGE TRANSFER SUMMARY HOSPITAL COURSE: The patient is a 74-year-old male patient who was admitted through the Emergency Room to [facility] with shortness of breath. Apparently, he has been complaining of shortness of breath for the last 3 days prior to admission. His pulse oximetry on the evening of admission was 88% on room air and his called EMS. En route, the patient was found to be in atrial fibrillation with RVR approximated at 150 beats per minute. He was placed on nonrebreather mask at 15 mL supplemental oxygen with improvement. Pulse oximetry reading on arrival, the patient remained in atrial fibrillation with rapid ventricular response. The patient was alert, oriented to person and place. He was complaining of inability to catch his breath and substernal chest pressure that is nonradiating. He was unsure about his prior medical history and thus his eventually arrived to the Emergency Room and further history was elicited and apparently he typically goes to [facility] in [facility]. He has history of numerous hospitalizations for his shortness of breath for which he was diagnosed with COPD. He has a history of cardiac arrest, but this was due to reaction to IODINE. This occurred about 10 years ago. The patient has not had any extensive cardiovascular workup. It is unknown if he has ever had a stress test or catheterization performed. The patient usually follows with his primary care physician as an outpatient setting. He was extensively evaluated and was admitted with atrial fibrillation, RVR. He was also found to have a mediastinal mass and COPD, obesity, and hypertension. He was seen in consultation by the Cardiology team and his heart rate is now well controlled as he is now on metoprolol tartrate 50 mg twice a day and further investigation with he has had a CT scan of the head, which showed that no obvious acute intracranial abnormality identified allowing for motion. He had a chest x-ray, which showed the patient has large mediastinal mass. The CT scan of the chest, abdomen and pelvis showed the patient has a very large anterior mediastinal mass eccentric to the left, also middle mediastinal lymphadenopathy as well as some pericardial phrenic nodes. There is also a noncalcified somewhat cylindrical left upper lobe noncalcified mass. There is also pleural based mass posteriorly of the inferior right hemithorax, finding could be due to lung malignancy, metastatic disease or lymphoma, sequela of invasive thymoma. Thymic carcinoma would be also included in the differential consideration, given the large anterior mediastinal component and pleural-based lesion. There is also an ectatic aortic root and tubular ascending thoracic aorta. There is emphysema. There is coronary calcification. In the abdomen, there is some hypodense left renal lesion, most likely due to cyst . Given the patient has been apparently refusing to have investigated this as an outpatient, a decision was made as per the family's insistence to admit him to [facility] to consult the surgical team to have at least biopsy, get a tissue diagnosis and seen by the oncologist and obviously the rest of the workup can be done as an outpatient. He was accepted at [facility] this afternoon and will be discharged there for further evaluation and treatment. When I saw him this afternoon, he looked well and was clearly in no apparent respiratory distress. There was no pallor, jaundice, cyanosis or thyromegaly. No jugular venous distention, but he has a large left supraclavicular lymph nodes that is about 2.5 cm in diameter, freely mobile. I could not really appreciate any other lymph nodes in the right side from both axillary areas. PHYSICAL EXAMINATION: VITAL SIGNS: His heart rate was 77, blood pressure was 113/68, temperature was 97.5, respiratory rate was 18 and oxygen saturation was 96% on room air. HEAD, EYES, EARS, NOSE AND THROAT: Showed normocephalic, atraumatic. NECK: Supple. CARDIAC: Normal first and second heart sounds. No gallop, rub or murmur. CHEST: Clear to auscultation. No crepitation or rhonchi. ABDOMEN: Distended, soft, nontender. NEUROLOGIC: He is somewhat confused, but without any obvious lateralizing sign. All his cranial nerves are intact. EXTREMITIES: He moves extremities without difficulty. LABORATORY DATA: His lab work as of yesterday showed a white cell count 9200, hemoglobin 13.9, hematocrit 41, MCV 85 and platelet count 211,000. His chemistry showed a serum sodium 136, potassium 3.9, chloride 99, bicarbonate 26, anion gap of 11, BUN 40, creatinine 1.3, estimated GFR was 54 mL per minute, his glucose 111, calcium was 9.2. His serum triglycerides 114. LDL was 92, VLDL was 33, HDL was 37, the ratio was 2. His TSH was 1.794. DISCHARGE MEDICATIONS: The patient was transferred to [facility] to continue on his amlodipine besylate 10 mg once a day, aspirin 81 mg once a day, pioglitazone/metformin for Actoplus 15/500 one tablet twice a day and Crestor 5 mg at bedtime. FINAL DISCHARGE DIAGNOSES: 1. Atrial fibrillation with rapid ventricular response, rate controlled. 2. Acute respiratory failure with acute exacerbation of chronic obstructive pulmonary disease. 3. Large mediastinal mass with mediastinal lymphadenopathy and left supraclavicular lymph node, chronic kidney disease, hypertension, hyperlipidemia, type 2 diabetes, tobaccoism, encephalopathy versus dementia. PALLAVI LOPEZ MD DR: JA/jam JOB#: [id number] / [id number]
--- NOTE | 2019-11-29 17:01 | NUR ---
SPOKE WITH , SON AND GRANDAUGHTER OF PT ABOUT PT WANTING TO GO HOME AND DO "OUTPATIENT" BIOPSY WITH PCP. PATIENT NOTIFIED THAT HE HAS A BED AT [facility] AND WE ARE WORKING ON TRANSFER AT THIS TIME. FAMILY AWARE AND EAGER TO HAVE PATIENT GO TO [facility] AND GET BIOPSY. PT REDIRECTED MULTIPLE TIMES THROUGHOUT DAY ABOUT WHAT POC IS AFTER ASKING WHAT THE PLAN IS. PT IS RESTLESS BETWEEN BEDSIDE AND CHAIR BUT HAS REMAINED COMPLIANT WITH ALL CARE BY STAFF. REPORT CALLED TO [facility] TO ANITA CASTLE. AWAITING EMS TRANSFER TO [facility] AT THIS TIME.
[2019-11-29] MEDS ORDERED: HALOPERIDOL LACT 5 MG/ML VIAL. IVP PRN (18:15)
[2019-11-29 18:40] VITALS: BP 100/58
[2019-11-29 20:05] VITALS: BP 118/51
[2019-11-29] MEDS: ATORVASTATIN CALCIUM 20 MG TABLET PO SCH (20:05)
--- NOTE | 2019-11-29 20:30 | NUR ---
Pt has been sitting in chair quietly since change of shift. Pt requested coffee but refused HS snack. Took HS medications without difficulty. EMS here for transport at 2024. Report given at bedside and paperwork packet given. -Molly called with update on transport and son. [facility] called for heads up that pt is in route and update on report. Pt ambulated to [facility] with standby assist only. Pt taken off unit at 2029 on [facility] accompanied by EMS, with all belongings.
== END 2019-11-29 20:35 | disposition short-term general hospital (02) | DRG 189 ==
LOC: ER 00:02 → ICU 01:35
PROVIDERS: ADMIT Hospitalist; ATTEND Internal Medicine
DX: J96.00 Acute respiratory failure, unspecified whether with hypoxia or hypercapnia (principal); J98.59 Other diseases of mediastinum, not elsewhere classified; G93.40 Encephalopathy, unspecified; I48.0 Paroxysmal atrial fibrillation; E11.22 Type 2 diabetes mellitus with diabetic chronic kidney disease; E66.9 Obesity, unspecified; E78.5 Hyperlipidemia, unspecified; F17.210 Nicotine dependence, cigarettes, uncomplicated; I12.9 Hypertensive chronic kidney disease with stage 1 through stage 4 chronic kidney disease, or unspecified chronic kidney disease; J43.9 Emphysema, unspecified; F03.90 Unspecified dementia, unspecified severity, without behavioral disturbance, psychotic disturbance, mood disturbance, and anxiety; I25.10 Atherosclerotic heart disease of native coronary artery without angina pectoris; N18.9 Chronic kidney disease, unspecified; Z82.49 Family history of ischemic heart disease and other diseases of the circulatory system; Z86.74 Personal history of sudden cardiac arrest; Z91.14 Patient's other noncompliance with medication regimen; Z91.041 Radiographic dye allergy status; Z68.27 Body mass index [BMI] 27.0-27.9, adult
CPT/HCPCS: 36415; 70450; 71045; 71250; 74150; 80048; 80053; 80061; 81001; 82550; 82947; 83735; 83880; 84443; 84484; 85025; 93005; 93306; 96365; 96366; 96372; 96375; J1650; J1940; J2060; J2405; J3490; 99285-25

== ENCOUNTER 2019-12-03 13:37 | Emergency (ER) | payer BC, MEDICARE ==
[~2019-12-03] VITALS: Ht 177.8 cm; Wt 88.1 kg
[~2019-12-03 13:37] MED LIST: AMLO-187 PO; ASPI81TA59 PO; PIOG1TAB PO; ROSU5TAB12 PO
--- NOTE | 2019-12-03 14:32 | PHYS DOC ---
Past History Past Medical History: CAD, COPD, Hypertension Past Surgical History: Appendectomy, Cholecystectomy Additional Past Surgical Histo: unknown Alcohol Use: None Adult General Chief Complaint Chief Complaint: WEAKNESS/GENERALIZED HPI HPI Patient is a 74-year-old male who presents with weakness. Patient was recently seen at our facility admitted in critical condition for episode of atrial fibrillation with RVR. Patient had extensive work-up at [facility] and had his atrial fibrillation rate controlled. He was subsequently transferred to [facility] for surgical intervention for which he received a diagnostic biopsy of concerning lung mass that is likely a neoplasm, results are pending at this time. Patient was discharged home for which he has been residing with his . Per , patient has been more fatigued than usual. He has not been eating his typical amounts of food. He is still able to complete all activities of daily living. concerned and convinced patient to travel to our ER for repeat evaluation. On arrival today, patient has no co mplaints. He denies any recent fever, COVID-19 contacts, headache, chest pain, palpitations, feeling of impending doom, shortness of breath, abdominal pain, nausea or vomit diarrhea, UTI-like symptoms, changes in bladder or bowel function. Review of Systems Review of Systems Fourteen body systems of review of systems have been reviewed. See HPI for pertinent positives and negative responses, other mondragon all other systems are negative, non-pertinent or non-contributory Allergies Allergies Allergies Uncoded Allergies Type Severity Reaction Last Updated Verified IODINE Adverse Reaction Severe 11/27/19 Physical Exam Physical Exam Constitutional: Well developed, well nourished, no acute distress, non-toxic appearance. HENT: Normocephalic, atraumatic, bilateral external ears normal, oropharynx moist, no oral exudates, nose normal. Eyes: PERRLA, EOMI, conjunctiva normal, no discharge. Neck: Normal range of motion, no tenderness, supple, no stridor. Cardiovascular: Heart rate regular, sinus rhythm, no murmurs rubs or gallops Lungs & Thorax: Bilateral breath sounds clear to auscultation. Palpable abnormality in left supraclavicular fossa as described in previous physical exam concerning for virchow node Abdomen: Bowel sounds normal, soft, no tenderness, no masses, no pulsatile masses. Nonsurgical abdomen, no peritoneal signs Skin: Warm, dry, no erythema, no rash. Abrasion noted to right posterior shoulder, well appearing without infection Back: No tenderness, no CVA tenderness. Extremities: No tenderness, no cyanosis, no clubbing, ROM intact, no edema. Neurologic: Alert and oriented X 3, grossly normal motor & sensory function, no focal deficits noted. Psychologic: Affect normal, judgement normal, mood normal. Current Patient Data Vital Signs Vital Signs Date Time Temp Pulse Resp B/P (MAP) Pulse Ox O2 Delivery O2 Flow Rate FiO2 12/03/19 13:44 97.6 93 16 146/81 (102) 98 Room Air Lab Results Laboratory Tests Test 12/03/19 14:27 White Blood Count 8.7 x10^3/uL (4.0-11.0) Red Blood Count 4.96 x10^6/uL (4.30-5.70) Hemoglobin 14.1 g/dL (13.0-17.5) Hematocrit 42.1 % (39.0-53.0) Mean Corpuscular Volume 85 fL (79-100) Mean Corpuscular Hemoglobin 28 pg (25-35) Mean Corpuscular Hemoglobin Concent 33 g/dL (31-37) Red Cell Distribution Width 15.4 % (11.5-14.5) Platelet Count 278 x10^3/uL (140-400) Neutrophils (%) (Auto) 81 % (31-73) Lymphocytes (%) (Auto) 11 % (24-48) Monocytes (%) (Auto) 7 % (0-9) Eosinophils (%) (Auto) 0 % (0-3) Basophils (%) (Auto) 0 % (0-3) Neutrophils # (Auto) 7.0 x10^3uL (1.8-7.7) Lymphocytes # (Auto) 1.0 x10^3/uL (1.0-4.8) Monocytes # (Auto) 0.6 x10^3/uL (0.0-1.1) Eosinophils # (Auto) 0.0 x10^3/uL (0.0-0.7) Basophils # (Auto) 0.0 x10^3/uL (0.0-0.2) Sodium Level 136 mmol/L (136-145) Potassium Level 4.2 mmol/L (3.5-5.1) Chloride Level 98 mmol/L (98-107) Carbon Dioxide Level 25 mmol/L (21-32) Anion Gap 13 (6-14) Blood Urea Nitrogen 36 mg/dL (8-26) Creatinine 1.4 mg/dL (0.7-1.3) Estimated GFR (Cockcroft-Gault) 49.7 BUN/Creatinine Ratio 26 (6-20) Glucose Level 159 mg/dL (70-99) Calcium Level 9.1 mg/dL (8.5-10.1) Magnesium Level 2.1 mg/dL (1.8-2.4) Total Bilirubin 0.5 mg/dL (0.2-1.0) Aspartate Amino Transf (AST/SGOT) 20 U/L (15-37) Alanine Aminotransferase (ALT/SGPT) 33 U/L (16-63) Alkaline Phosphatase 69 U/L (46-116) Creatine Kinase 29 U/L (39-308) Troponin I Quantitative < 0.017 ng/mL (0-0.055) WP-Vzm-X-Type Natriuretic Peptide 748 pg/mL (0-124) Total Protein 6.5 g/dL (6.4-8.2) Albumin 2.7 g/dL (3.4-5.0) Albumin/Globulin Ratio 0.7 (1.0-1.7) EKG EKG EKG ordered and interpreted by myself at 1430 hrs. at sinus rhythm at 89 bpm, unremarkable intervals, no axis deviation, no acute ischemic findings, no STEMI Radiology/Procedures Radiology/Procedures PROCEDURE: PORTABLE CHEST 1V Chest AP portable at 1403: Reason for examination: Fatigue and chest pain. Comparison is made to previous exam dated 11/27/[address] chest dated 11/27/2019. The heart size is normal. Mediastinum continues to show a large mass with calcification. There also appears to be mass density in the left upper lobe medially which does not appear to show significant change. There is some linear density consistent with atelectasis at the left lung base. Right lung field shows a small nodule consistent with a probable calcified granuloma at the right lung base. No acute bony abnormalities are seen. IMPRESSION: Continued presence of a large mediastinal mass with calcification which shows no definite change. Soft tissue mass in the medial left upper lobe without definite change. Linear atelectasis at the left lung base. Probable small granuloma at the right lung base. Electronically signed by: Abigail Bustillos MD (12/03/2019 2:58 PM) [id number] Heart Score HEART Score for Chest Pain: HEART Score for Chest Pain Response (Comments) Value History Slighlty/Non-Suspicious 0 ECG Normal 0 Age > 65 2 Risk Factors >3 Risk Factors or Hx CAD 2 Troponin < Normal Limit 0 Total 4 Risk Factors: Risk Factors: DM, Current or recent (<one month) smoker, HTN, HLP, family history of CAD, obesity. Risk Scores: Risk Factors: DM, Current or recent (<one month) smoker, HTN, HLP, family history of CAD, obesity. Course & Med Decision Making Course & Med Decision Making Pertinent Labs and Imaging studies reviewed. (See chart for details) Discussed most likely diagnosis of generalized fatigue likely due to prolonged hospitalization and recent health events Discussed with patient and no obvious emergent and/or surgical findings during today's examination I disclosed patient might feel weaker than usual which is understandable given critical condition he came into hospital for recently At this time, I do not feel more ER work-up and/or intervention is indicated. He does not meet admission for criteria at this time. I advised patient and to discuss potential need for home health versus detention versus other with primary care physician on follow-up. Patient has follow-up with business support liaison this upcoming Wednesday to discuss recent lung biopsy results likely cancerous in nature Strict return precautions were discussed with good understanding by patient and , all questions and concerns addressed prior to ER departure in stable condition Dragon Disclaimer Dragon Disclaimer This electronic medical record was generated, in whole or in part, using a voice recognition dictation system. Departure Departure: Impression: Primary Impression: Fatigue Disposition: 01 DC HOME SELF CARE/HOMELESS Condition: STABLE Referrals: DARCIE MELTON MD (PCP) Additional Instructions: As discussed prior to ER departure, please call your primary care physician first thing tomorrow to schedule outpatient follow-up in upcoming 1 to 10 days time Please keep your previously scheduled follow-up with your business support liaison this upcoming Wednesday Regarding sleep, I recommended you try taking melatonin which is [id number] approximately 2 hours prior to bedtime. Please take as scheduled on bottle If any other concerning signs or symptoms present prior to outpatient follow-up please do not hesitate to come back for repeat evaluation It was a pleasure to take care of you and I wish you a speedy recovery INOCENCIO BAIN DO Dec 03, 2019 14:32
[2019-12-03 14:48] LABS: BASO % 0 % (0-3); EOS % 0 % (0-3); HEMATOCRIT 42.1 % (39.0-53.0); HEMOGLOBIN 14.1 g/dL (13.0-17.5); LYMPH % 11 % (24-48); MEAN CORPUSCULAR HEMOGLOBIN 28 pg (25-35); MEAN CORPUSCULAR HGB CONC 33 g/dL (31-37); MEAN CORPUSCULAR VOLUME 85 fL (79-100); MONO # 0.6 x10^3/uL (0.0-1.1); MONO % 7 % (0-9); NEUT % 81 % (31-73); PLATELET COUNT 278 x10^3/uL (140-400); RED BLOOD COUNT 4.96 x10^6/uL (4.30-5.70); RED CELL DISTRIBUTION WIDTH 15.4 % (11.5-14.5); WHITE BLOOD COUNT 8.7 x10^3/uL (4.0-11.0)
[2019-12-03 14:57] LABS: CALCIUM 9.1 mg/dL (8.5-10.1); CREATININE 1.4 mg/dL (0.7-1.3); GFR 49.7; POTASSIUM 4.2 mmol/L (3.5-5.1)
--- NOTE | 2019-12-03 15:01 | RAD ---
Chest AP portable at 1403: Reason for examination: Fatigue and chest pain. Comparison is made to previous exam dated 11/27/[address] chest dated 11/27/2019. The heart size is normal. Mediastinum continues to show a large mass with calcification. There also appears to be mass density in the left upper lobe medially which does not appear to show significant change. There is some linear density consistent with atelectasis at the left lung base. Right lung field shows a small nodule consistent with a probable calcified granuloma at the right lung base. No acute bony abnormalities are seen. IMPRESSION: Continued presence of a large mediastinal mass with calcification which shows no definite change. Soft tissue mass in the medial left upper lobe without definite change. Linear atelectasis at the left lung base. Probable small granuloma at the right lung base. Electronically signed by: Abigail Bustillos MD (12/03/2019 2:58 PM) [id number]
[2019-12-03 15:04] VITALS: BP 140/91
[2019-12-03 15:04] LABS: ALBUMIN 2.7 g/dL (3.4-5.0); ALBUMIN/GLOBULIN RATIO 0.7 (1.0-1.7); MAGNESIUM 2.1 mg/dL (1.8-2.4); TOTAL BILIRUBIN 0.5 mg/dL (0.2-1.0); TOTAL PROTEIN 6.5 g/dL (6.4-8.2)
--- NOTE | 2019-12-03 17:13 | EKG ---
[address] [address] Test Date: 2019-12-03 Test Time: 14:18:50 Pat Name: JEET POND Department: Room: Gender: M Swimming Pool Attendant: DEVORA : 1945 Requested By: INOCENCIO BAIN Order Number: [id number] Reading MD: Measurements Intervals [place] Rate: 89 P: 21 OK: 160 QRS: 40 QRSD: 86 T: 56 QT: 340 QTc: 415 Interpretive Statements SINUS RHYTHM NO SPECIFIC ECG ABNORMALITIES RI6.02 No previous ECG available for comparison
[2019-12-04] MEDS ORDERED: ONDA4TAB7 PO (16:12)
== END 2019-12-03 15:36 | disposition home or self-care (01) ==
LOC: ER 13:37
DX: R53.83 Other fatigue (principal); R53.1 Weakness; I25.10 Atherosclerotic heart disease of native coronary artery without angina pectoris; J44.9 Chronic obstructive pulmonary disease, unspecified; I10 Essential (primary) hypertension; I48.91 Unspecified atrial fibrillation; Z88.8 Allergy status to other drugs, medicaments and biological substances
CPT/HCPCS: 36415; 71045; 80053; 82550; 83735; 83880; 84484; 85025; 93005; 99285-25

== ENCOUNTER 2019-12-04 15:16 | Emergency (ER) | payer BC, MEDICARE ==
[~2019-12-04] VITALS: Ht 177.8 cm; Wt 100.0 kg
--- NOTE | 2019-12-04 15:22 | PHYS DOC ---
Past History Past Medical History: CAD, COPD, Hypertension Past Surgical History: Appendectomy, Cholecystectomy Additional Past Surgical Histo: unknown Alcohol Use: None Adult General Chief Complaint Chief Complaint: WEAKNESS/GENERALIZED HPI HPI Patient is a 74yo male who presents for fatigue. Patient recently was discharged after a complicated stay for afib RVR with eventual transfer to [place] for lung mass biopsy (likely cancer, path report pending). Patient presented yesterday for fatigue that has been present ever since hospital discharge and received a thorough workup that was grossly unremarkable and discharged back home. Patient continued to feel grossly fatigued without any other concerning signs or symptoms. He has been afebrile, no falls or sick contacts. is extremely anxious and concerned about patient as she was the one who called EMS for transport to our facility yesterday. She called EMS today as she noticed patient was eating less than usual. On arrival, patient has no complaints besides general feelings of fatigue Review of Systems Review of Systems Fourteen body systems of review of systems have been reviewed. See HPI for pertinent positives and negative responses, other mondragon all other systems are negative, non-pertinent or non-contributory Allergies Allergies Allergies Uncoded Allergies Type Severity Reaction Last Updated Verified IODINE Adverse Reaction Severe 11/27/19 Physical Exam Physical Exam Constitutional: Well developed, well nourished, no acute distress, non-toxic appearance. HENT: Normocephalic, atraumatic, bilateral external ears normal, oropharynx moist, no oral exudates, nose normal. Eyes: PERRLA, EOMI, conjunctiva normal, no discharge. Neck: Normal range of motion, no tenderness, supple, no stridor. Cardiovascular: Heart rate regular, sinus rhythm, no murmurs rubs or gallops Lungs & Thorax: Bilateral breath sounds clear to auscultation. Palpable abnormality in left supraclavicular fossa as described in previous physical exam concerning for virchow node Abdomen: Bowel sounds normal, soft, no tenderness, no masses, no pulsatile masses. Nonsurgical abdomen, no peritoneal signs Skin: Warm, dry, no erythema, no rash. Abrasion noted to right posterior shoulder, well appearing without infection Back: No tenderness, no CVA tenderness. Extremities: No tenderness, no cyanosis, no clubbing, ROM intact, no edema. Neurologic: Alert and oriented X 3, grossly normal motor & sensory function, no focal deficits noted. Psychologic: Affect normal, judgement normal, mood normal. Current Patient Data Vital Signs Vital Signs Date Time Temp Pulse Resp B/P (MAP) Pulse Ox O2 Delivery O2 Flow Rate FiO2 12/04/19 16:19 88 22 153/57 (89) 97 Room Air 12/04/19 15:24 95.8 Lab Results Laboratory Tests Test 12/04/19 15:30 12/04/19 15:38 White Blood Count 10.4 x10^3/uL (4.0-11.0) Red Blood Count 5.27 x10^6/uL (4.30-5.70) Hemoglobin 14.8 g/dL (13.0-17.5) Hematocrit 44.7 % (39.0-53.0) Mean Corpuscular Volume 85 fL (79-100) Mean Corpuscular Hemoglobin 28 pg (25-35) Mean Corpuscular Hemoglobin Concent 33 g/dL (31-37) Red Cell Distribution Width 15.2 % (11.5-14.5) Platelet Count 340 x10^3/uL (140-400) Neutrophils (%) (Auto) 75 % (31-73) Lymphocytes (%) (Auto) 17 % (24-48) Monocytes (%) (Auto) 7 % (0-9) Eosinophils (%) (Auto) 0 % (0-3) Basophils (%) (Auto) 1 % (0-3) Neutrophils # (Auto) 7.9 x10^3uL (1.8-7.7) Lymphocytes # (Auto) 1.8 x10^3/uL (1.0-4.8) Monocytes # (Auto) 0.8 x10^3/uL (0.0-1.1) Eosinophils # (Auto) 0.0 x10^3/uL (0.0-0.7) Basophils # (Auto) 0.0 x10^3/uL (0.0-0.2) Sodium Level 135 mmol/L (136-145) Potassium Level 4.1 mmol/L (3.5-5.1) Chloride Level 97 mmol/L (98-107) Carbon Dioxide Level 26 mmol/L (21-32) Anion Gap 12 (6-14) Blood Urea Nitrogen 33 mg/dL (8-26) Creatinine 1.4 mg/dL (0.7-1.3) Estimated GFR (Cockcroft-Gault) 49.7 BUN/Creatinine Ratio 24 (6-20) Glucose Level 121 mg/dL (70-99) Glucose (Fingerstick) 130 mg/dL (70-99) Calcium Level 9.5 mg/dL (8.5-10.1) Total Bilirubin 0.6 mg/dL (0.2-1.0) Aspartate Amino Transf (AST/SGOT) 28 U/L (15-37) Alanine Aminotransferase (ALT/SGPT) 40 U/L (16-63) Alkaline Phosphatase 75 U/L (46-116) Troponin I Quantitative < 0.017 ng/mL (0-0.055) Total Protein 7.1 g/dL (6.4-8.2) Albumin 3.1 g/dL (3.4-5.0) Albumin/Globulin Ratio 0.8 (1.0-1.7) Bedside Venous pH 7.48 (7.32-7.42) Bedside Venous pCO2 34 mmHg (41-51) Bedside Venous pO2 42 mmHg (20-40) Venous Blood HCO3 26 mmol/L (24-28) POC Venous O2 Saturation (Blaine) 81 % Bedside FiO2 21 EKG EKG EKG ordered and interpreted by myself at 1537 hrs. as sinus rhythm at 94 bpm, unremarkable intervals, no axis deviation, no ischemic findings, no STEMI Heart Score HEART Score for Chest Pain: HEART Score for Chest Pain Response (Comments) Value History Slighlty/Non-Suspicious 0 ECG Normal 0 Age > 65 2 Risk Factors >3 Risk Factors or Hx CAD 2 Total 4 Risk Factors: Risk Factors: DM, Current or recent (<one month) smoker, HTN, HLP, family history of CAD, obesity. Risk Scores: Risk Factors: DM, Current or recent (<one month) smoker, HTN, HLP, family history of CAD, obesity. Course & Med Decision Making Course & Med Decision Making Pertinent Labs and Imaging studies reviewed. (See chart for details) Another unremarkable workup. Patient grossly asymptomatic, ambulatory and hemodynamically stable. Patient NOT wanting admission, not willing to be placed at SNF/assisted living. I feel primary reason patient is here is underlying anxiety/concern about patient's health from . I explained I can admit patient for continued supportive care and placement but he is unwilling. He has the capacity to make this decision. Patient has numerous outpatient visits scheduled in upcoming 14 days, I advised him to keep these. Strict return precautions discussed again with good understanding, all questions and concerns addressed prior to ED discharge in s table condition. Dragnesha Disclaimer Janetteon Disclaimer This electronic medical record was generated, in whole or in part, using a voice recognition dictation system. Departure Departure: Impression: Primary Impression: Weakness Disposition: 01 DC HOME SELF CARE/HOMELESS Condition: STABLE Referrals: DARCIE MELTON MD (PCP) Patient Instructions: Fatigue Scripts Ondansetron Hcl (ZOFRAN) 4 Mg Tablet 1 TAB PO Q8HRS for NAUSEA, #30 TAB Prov: INOCENCIO BAIN DO 12/04/19 INOCENCIO BAIN DO Dec 04, 2019 15:22
--- NOTE | 2019-12-04 15:39 | EKG ---
[address] [address] Test Date: 2019-12-04 Test Time: 15:33:23 Pat Name: JEET POND Department: Room: Gender: M Academic Advisement Director: REMEDIOS : 1945 Requested By: INOCENCIO BAIN Order Number: [id number] Reading MD: Measurements Intervals [place] Rate: 94 P: 41 DC: 156 QRS: 44 QRSD: 80 T: 52 QT: 326 QTc: 408 Interpretive Statements SINUS RHYTHM OTHERWISE NORMAL ECG RI6.02 No previous ECG available for comparison
[2019-12-04 15:53] LABS: BASO % 1 % (0-3); EOS % 0 % (0-3); HEMATOCRIT 44.7 % (39.0-53.0); HEMOGLOBIN 14.8 g/dL (13.0-17.5); LYMPH # 1.8 x10^3/uL (1.0-4.8); LYMPH % 17 % (24-48); MEAN CORPUSCULAR HEMOGLOBIN 28 pg (25-35); MEAN CORPUSCULAR HGB CONC 33 g/dL (31-37); MEAN CORPUSCULAR VOLUME 85 fL (79-100); MONO # 0.8 x10^3/uL (0.0-1.1); MONO % 7 % (0-9); NEUT # 7.9 x10^3uL (1.8-7.7); NEUT % 75 % (31-73); PLATELET COUNT 340 x10^3/uL (140-400); RED BLOOD COUNT 5.27 x10^6/uL (4.30-5.70); RED CELL DISTRIBUTION WIDTH 15.2 % (11.5-14.5); WHITE BLOOD COUNT 10.4 x10^3/uL (4.0-11.0)
[2019-12-04 15:58] LABS: CALCIUM 9.5 mg/dL (8.5-10.1); CREATININE 1.4 mg/dL (0.7-1.3); GFR 49.7; POTASSIUM 4.1 mmol/L (3.5-5.1)
[2019-12-04 16:04] LABS: ALBUMIN 3.1 g/dL (3.4-5.0); ALBUMIN/GLOBULIN RATIO 0.8 (1.0-1.7); TOTAL BILIRUBIN 0.6 mg/dL (0.2-1.0); TOTAL PROTEIN 7.1 g/dL (6.4-8.2)
[2019-12-04] MEDS ORDERED: ONDA4TAB7 PO (16:12)
[2019-12-04 16:19] VITALS: BP 153/57
== END 2019-12-04 16:23 | disposition home or self-care (01) ==
LOC: ER 15:16
DX: R53.1 Weakness (principal); R53.83 Other fatigue; I25.10 Atherosclerotic heart disease of native coronary artery without angina pectoris; J44.9 Chronic obstructive pulmonary disease, unspecified; I10 Essential (primary) hypertension; Z88.8 Allergy status to other drugs, medicaments and biological substances
CPT/HCPCS: 36415; 80053; 82803; 82947; 84484; 85025; 93005; 99284

== ENCOUNTER 2019-12-07 07:07 | Emergency (ER) | payer BC ==
[~2019-12-07] VITALS: Ht 182.9 cm; Wt 100.0 kg
[~2019-12-07 07:07] MED LIST changes: +ONDA4TAB7 PO
[2019-12-07] MEDS ORDERED: IV NORMAL SALINE 500ML 500 ML IV ONE (07:15)
--- NOTE | 2019-12-07 07:16 | PHYS DOC ---
Past History Past Medical History: Anxiety, Cancer (small cell lung ca), COPD, Dementia, Hypertension Past Surgical History: Appendectomy, Cholecystectomy, Other Additional Past Surgical Histo: BACK SURGERY Alcohol Use: None Adult General HPI HPI Patient is a 74-year-old male who presents via EMS for shortness of breath. Patient has had difficult past 2 weeks, was hospitalized for A. fib with RVR last week and subsequently sent to [facility] for lung mass biopsy. Patient visited our ER twice in the past 5 days for generalized fatigue and offered admission with recommendation for placement to SNF versus other but patient refused. Patient followed up with pulmonology yesterday to receive results of recent lung mass biopsy and was told he has x7 masses in the chest cavity, was diagnosed with small cell lung cancer. He is pending further diagnostic studies at [facility] tomorrow per oncology who are wanting to obtain a brain MRI and PET scan of patient. Patient is a poor historian today. Daughter and called who are primary historians. Patient reportedly got up to urinate this morning and on the way back from bathroom called out to to call an ambulance due to shortness of breath. He was more weak than usual. No falls were reported. EMS arrived and transported patient to our facility. In route, patient was found to be unstable with heart rate in the 170s and hypotensive with blood pressure approximately 70/50. 5 mg IM Versed administered and prior to electrode cardioverting patient, he became rate controlled. Patient arrives to our facility with heart rate in the low 100s, remains hypotensive at 90s over 60s with no other vital sign abnormalities. Patient continues to complain of generalized fatigue and shortness of breath, denies any other concerning symptoms. He has taken all medications today. He is on 81 mg aspirin for anticoagulation at this time. I did confirm with daughter and that patient updated his CODE STATUS to DNR since last ER visit Review of Systems Review of Systems Fourteen body systems of review of systems have been reviewed. See HPI for pertinent positives and negative responses, other mondragon all other systems are negative, non-pertinent or non-contributory Current Medications Current Medications Current Medications Medications (Trade) Dose Ordered Sig/Sobeida Start Time Stop Time Status Last Admin Dose Admin Sodium Chloride 500 ml @ 0 mls/hr 1X ONCE 12/07/19 07:15 12/07/19 07:16 UNV Allergies Allergies Allergies Coded Allergies Type Severity Reaction Last Updated Verified iodine Allergy Unknown 12/04/19 Yes Physical Exam Physical Exam Constitutional: Pt is oriented to person, place, and time. Pt appears fatigued, maintaining airway, GCS 14 HENT: Head: Normocephalic and atraumatic. Mouth/Throat: Oropharynx is clear and moist. No hematomas or lacerations or abrasions to face or scalp OP clear, no blood, no malocclusion, dentition intact Nares clear, no nasal septal hematoma External ears unremarkable, no troy sign Midface stable Eyes: Conjunctivae and EOM are normal. Pupils are equal, round, and reactive to light. Neck: C-spine midline nontender, no step-offs Cardiovascular: Normal rate, regular rhythm and normal heart sounds. Pulmonary/Chest: Effort normal and breath sounds remarkable for bilateral rhonchi. No respiratory distress. No wheezes. Abdominal: Soft. Bowel sounds are normal. Pt exhibits no distension. There is no tenderness. Musculoskeletal: No bony tenderness to extremities, no deformities, full ROM extremities Chest wall stable Pelvis stable and non-tender No vertebral TTP and spine without stepoffs Neurological: Pt is alert and oriented to person, place, and time. Moving all extremities willfully, able to wiggle all fingers and toes Sensation grossly intact Skin: Skin is warm and dry. No abrasions, no lacerations Psychiatric: Behavior is appropriate for situation Nursing note and vitals reviewed. Current Patient Data Vital Signs Vital Signs Date Time Temp Pulse Resp B/P (MAP) Pulse Ox O2 Delivery O2 Flow Rate FiO2 12/07/19 07:54 98.4 99 18 89/62 (71) 95 Room Air Lab Results Laboratory Tests Test 12/07/19 07:14 12/07/19 07:54 12/07/19 08:10 White Blood Count 12.9 x10^3/uL (4.0-11.0) Red Blood Count 5.13 x10^6/uL (4.30-5.70) Hemoglobin 14.2 g/dL (13.0-17.5) Hematocrit 44.4 % (39.0-53.0) Mean Corpuscular Volume 87 fL (79-100) Mean Corpuscular Hemoglobin 28 pg (25-35) Mean Corpuscular Hemoglobin Concent 32 g/dL (31-37) Red Cell Distribution Width 15.1 % (11.5-14.5) Platelet Count 315 x10^3/uL (140-400) Neutrophils (%) (Auto) 70 % (31-73) Lymphocytes (%) (Auto) 22 % (24-48) Monocytes (%) (Auto) 7 % (0-9) Eosinophils (%) (Auto) 1 % (0-3) Basophils (%) (Auto) 0 % (0-3) Neutrophils # (Auto) 9.0 x10^3uL (1.8-7.7) Lymphocytes # (Auto) 2.8 x10^3/uL (1.0-4.8) Monocytes # (Auto) 0.9 x10^3/uL (0.0-1.1) Eosinophils # (Auto) 0.1 x10^3/uL (0.0-0.7) Basophils # (Auto) 0.0 x10^3/uL (0.0-0.2) Sodium Level 136 mmol/L (136-145) Potassium Level 3.9 mmol/L (3.5-5.1) Chloride Level 97 mmol/L (98-107) Carbon Dioxide Level 17 mmol/L (21-32) Anion Gap 22 (6-14) Blood Urea Nitrogen 32 mg/dL (8-26) Creatinine 1.6 mg/dL (0.7-1.3) Estimated GFR (Cockcroft-Gault) 42.6 BUN/Creatinine Ratio 20 (6-20) Glucose Level 144 mg/dL (70-99) Calcium Level 9.2 mg/dL (8.5-10.1) Magnesium Level 1.9 mg/dL (1.8-2.4) Total Bilirubin 0.7 mg/dL (0.2-1.0) Aspartate Amino Transf (AST/SGOT) 31 U/L (15-37) Alanine Aminotransferase (ALT/SGPT) 40 U/L (16-63) Alkaline Phosphatase 64 U/L (46-116) Creatine Kinase 47 U/L (39-308) Troponin I Quantitative < 0.017 ng/mL (0-0.055) VN-Vse-K-Type Natriuretic Peptide 1086 pg/mL (0-124) Total Protein 6.3 g/dL (6.4-8.2) Albumin 2.9 g/dL (3.4-5.0) Albumin/Globulin Ratio 0.9 (1.0-1.7) Bedside Venous pH 7.35 (7.32-7.42) Bedside Venous pCO2 34 mmHg (41-51) Bedside Venous pO2 24 mmHg (20-40) Venous Blood HCO3 19 mmol/L (24-28) POC Venous O2 Saturation (Blaine) 40 % Bedside FiO2 21 Lactic Acid Level 2.8 mmol/L (0.4-2.0) EKG EKG EKG ordered and interpreted by myself at 0721 hrs. as sinus tachycardia at 102 bpm, unremarkable intervals, no axis deviation, no acute ischemic findings, no STEMI. These were compared to past x2 EKGs and unchanged Radiology/Procedures Radiology/Procedures PROCEDURE: PORTABLE CHEST 1V PORTABLE CHEST 1V INDICATION: sob, known lung mass COMPARISON STUDY: Radiograph 12/03/2019. CT 11/27/2019. FINDINGS: Lungs: Normal lung volume. No consolidation. The tracheobronchial tree and hilar structures are normal. Pleura: Stable small left pleural effusion. Heart and Mediastinum: Normal cardiac size. The great vessels of the thorax are normal. Stable large mediastinal mass. IMPRESSION: 1. No new consolidation. 2. Stable small left pleural effusion. 3. Stable mediastinal mass. Electronically signed by: Avila Ahn MD (12/07/2019 7:42 AM) [id number] Heart Score HEART Score for Chest Pain: HEART Score for Chest Pain Response (Comments) Value History Moderately Suspicious 1 ECG Normal 0 Age > 65 2 Risk Factors >3 Risk Factors or Hx CAD 2 Troponin < Normal Limit 0 Total 5 Risk Factors: Risk Factors: DM, Current or recent (<one month) smoker, HTN, HLP, family history of CAD, obesity. Risk Scores: Risk Factors: DM, Current or recent (<one month) smoker, HTN, HLP, family history of CAD, obesity. Course & Med Decision Making Course & Med Decision Making Pertinent Labs and Imaging studies reviewed. (See chart for details) Patient was unstable and what appeared to be supraventricular tachycardia versus A. fib RVR but spontaneously rate controlled in route Continues to be mildly sedated from 5 mg IM Versed administered. Hemodynamically stable with mild improvement in blood pressure since arrival to ER Nonetheless, given recent events, patient is extremely high risk for decline in bounce back if discharged home at this time. I discussed case with granddaughter and , all in favor for admission for observation I contacted Dr. Cordova, hospitalist at [facility] and discussed case. I discussed need for likely oncology consultation as patient has PET scan and MRI scheduled tomorrow. I feel they would best deliver poor prognosis and lead goals of care conversation with pt and family Dr. Cordova admitted patient. I relayed this proposed plan of care with and granddaughter, both were amenable. I prepared them that we would observe patient medically and primary reason of admission would be to discuss plan of care with high risk patient with poor prognosis All questions and concerns addressed prior to ER transport to [facility] in stable condition Dragon Disclaimer Dragon Disclaimer This electronic medical record was generated, in whole or in part, using a voice recognition dictation system. Departure Departure: Impression: Primary Impression: Small cell lung cancer in adult Additional Impressions: Supraventricular tachycardia A-fib Elevated serum creatinine Disposition: 02 DC/TRF OTHER SHORT TERM HOS ([facility]) Admitting Physician: Other (dr cordova) Condition: STABLE Referrals: DARCIE MELTON MD (PCP) Problem Qualifiers INOCENCIO BAIN DO Dec 07, 2019 07:16
[2019-12-07 07:33] LABS: BASO % 0 % (0-3); EOS # 0.1 x10^3/uL (0.0-0.7); EOS % 1 % (0-3); HEMATOCRIT 44.4 % (39.0-53.0); HEMOGLOBIN 14.2 g/dL (13.0-17.5); LYMPH # 2.8 x10^3/uL (1.0-4.8); LYMPH % 22 % (24-48); MEAN CORPUSCULAR HEMOGLOBIN 28 pg (25-35); MEAN CORPUSCULAR HGB CONC 32 g/dL (31-37); MEAN CORPUSCULAR VOLUME 87 fL (79-100); MONO # 0.9 x10^3/uL (0.0-1.1); MONO % 7 % (0-9); NEUT % 70 % (31-73); PLATELET COUNT 315 x10^3/uL (140-400); RED BLOOD COUNT 5.13 x10^6/uL (4.30-5.70); RED CELL DISTRIBUTION WIDTH 15.1 % (11.5-14.5); WHITE BLOOD COUNT 12.9 x10^3/uL (4.0-11.0)
--- NOTE | 2019-12-07 07:33 | EKG ---
[address] [address] Test Date: 2019-12-07 Test Time: 07:17:25 Pat Name: JEET POND Department: Room: Gender: M [employer]visor [employer]: [employer] : 1945 Requested By: INOCENCIO BAIN Order Number: [id number] Reading MD: Daniel Sanchez Measurements Intervals [place] Rate: 102 P: 28 TN: 158 QRS: 38 QRSD: 82 T: 40 QT: 324 QTc: 426 Interpretive Statements SINUS TACHYCARDIA Electronically Signed On 12-12-2019 11:18:12 [employer]AG [employer] by Daniel Sanchez
[2019-12-07 07:39] LABS: CALCIUM 9.2 mg/dL (8.5-10.1); CREATININE 1.6 mg/dL (0.7-1.3); GFR 42.6; POTASSIUM 3.9 mmol/L (3.5-5.1)
--- NOTE | 2019-12-07 07:45 | RAD ---
PORTABLE CHEST 1V INDICATION: sob, known lung mass COMPARISON STUDY: Radiograph 12/03/2019. CT 11/27/2019. FINDINGS: Lungs: Normal lung volume. No consolidation. The tracheobronchial tree and hilar structures are normal. Pleura: Stable small left pleural effusion. Heart and Mediastinum: Normal cardiac size. The great vessels of the thorax are normal. Stable large mediastinal mass. IMPRESSION: 1. No new consolidation. 2. Stable small left pleural effusion. 3. Stable mediastinal mass. Electronically signed by: Avila Ahn MD (12/07/2019 7:42 AM) [id number]
[2019-12-07 07:52] LABS: ALBUMIN 2.9 g/dL (3.4-5.0); ALBUMIN/GLOBULIN RATIO 0.9 (1.0-1.7); MAGNESIUM 1.9 mg/dL (1.8-2.4); TOTAL BILIRUBIN 0.7 mg/dL (0.2-1.0); TOTAL PROTEIN 6.3 g/dL (6.4-8.2)
[2019-12-07] MEDS ORDERED: ACETAMINOPHEN 325 MG TABLET PO ONE (09:30)
[2019-12-07 10:00] VITALS: BP 114/64
== END 2019-12-07 09:44 | disposition short-term general hospital (02) ==
LOC: ER 07:07
DX: I47.1 Supraventricular tachycardia (principal); C34.90 Malignant neoplasm of unspecified part of unspecified bronchus or lung; R79.89 Other specified abnormal findings of blood chemistry; I48.20 Chronic atrial fibrillation, unspecified; F41.9 Anxiety disorder, unspecified; J44.9 Chronic obstructive pulmonary disease, unspecified; I10 Essential (primary) hypertension; F03.90 Unspecified dementia, unspecified severity, without behavioral disturbance, psychotic disturbance, mood disturbance, and anxiety; Z90.89 Acquired absence of other organs; Z90.49 Acquired absence of other specified parts of digestive tract; Z98.890 Other specified postprocedural states; Z91.040 Latex allergy status
CPT/HCPCS: 36415; 71045; 80053; 82550; 82803; 83605; 83735; 83880; 84484; 85025; 93005; 96360; 99285; J7040